=== PATIENT | male | born 1945 | race Caucasian/White ===

== ENCOUNTER 2021-02-10 07:27 | Emergency (ER) | payer OTHER, MEDICARE ==
[~2021-02-10] VITALS: Ht 180.3 cm; Wt 92.1 kg
[2021-02-10 07:30] VITALS: BP_SYST 159
[2021-02-10 08:15] LABS: BILIRUBIN,URINE NEGATIVE (NEGATIVE); BLOOD, URINE 3+ (NEGATIVE); CLARITY/URINE CLEAR (CLEAR); COLOR,URINE YELLOW (YELLOW); GLUCOSE,URINE NEGATIVE (NEGATIVE); KETONES,URINE NEGATIVE (NEGATIVE); LEUKOCYTE ESTERASE ,URINE TRACE (NEGATIVE); NITRITE, URINE NEGATIVE (NEGATIVE); PH,URINE 5.5 (5.0-8.0); PROTEIN URINE 2+ (NEGATIVE); UROBILINOGEN,URINE 0.2 (0.2-1.0)
[2021-02-10 08:26] LABS: BACTERIA,URINE RARE /HPF (None Seen); RBC,URINE 20-50 /HPF (0-3)
[2021-02-10 08:47] VITALS: BP_SYST 135
== END 2021-02-10 08:47 | disposition home or self-care (01) ==
LOC: SED 07:27
DX: T83.511A Infection and inflammatory reaction due to indwelling urethral catheter, initial encounter (principal)
CPT/HCPCS: 81000; 99283

== ENCOUNTER 2021-03-03 21:59 | Inpatient (IN) | payer OTHER, MEDICARE, SELFPAY ==
[~2021-03-03] VITALS: Ht 180.3 cm; Wt 93.9 kg
[2021-03-03 22:00] VITALS: BP_SYST 125
[2021-03-03] MEDS ORDERED: HYT1 PO (22:08)
[2021-03-03] MEDS ORDERED: LOSA100T3 PO (22:08)
[2021-03-03] MEDS ORDERED: ASPI-1393 PO (22:08)
[2021-03-03] MEDS ORDERED: LIP40 PO (22:08)
[2021-03-03] MEDS ORDERED: PANT40TA45 PO (22:11)
[2021-03-03] MEDS ORDERED: OXYB5TAB16 PO (22:11)
[2021-03-03] MEDS ORDERED: METF1000 PO (22:11)
[2021-03-03] MEDS ORDERED: SILV50CR43 TP (22:11)
[2021-03-03 23:34] LABS: BASOPHILS # (AUTO) 0.1 K/uL (0.0-0.2); BASOPHILS % (AUTO) 0.4 % (0.0-2.0); LYMPHOCYTES # (AUTO) 0.9 K/uL (1.0-5.5); LYMPHOCYTES % (AUTO) 7.1 % (20.5-51.5); MEAN CORPUSCULAR HEMOGLOBIN 29 pg (27-31); MEAN CORPUSCULAR HGB CONC 32 % (32-36); MEAN CORPUSCULAR VOLUME 88 fL (79.0-98.0); MONOCYTES # (AUTO) 0.3 K/uL (0.0-1.0); MONOCYTES % (AUTO) 2.3 % (1.7-9.3); NEUTROPHILS # (AUTO) 11.8 K/uL (1.8-7.7); NEUTROPHILS % (AUTO) 90.2 % (40.0-70.0); PLATELET COUNT (AUTO) 162 K/uL (130-430); RED CELL DISTRIBUTION WIDTH 15.5 % (9.0-15.0); WHITE BLOOD COUNT (AUTO) 13.1 K/uL (4.8-10.8)
[2021-03-03 23:39] LABS: RED BLOOD CELL COUNT(AUTO) 1.92 MIL/uL (4.2-6.2)
[2021-03-03 23:40] LABS: HEMATOCRIT 16.9 % (36-54); HEMOGLOBIN 5.5 g/dL (14.0-18.0)
[2021-03-03 23:52] LABS: INR 1.1 (0.80-1.20)
[2021-03-04] VITALS (19 sets, daily range): BP systolic 83–129
[2021-03-04] MEDS ORDERED: PANTOPRAZOLE SODIUM 40 MG in NS 50 ML IV SCH ×2
[2021-03-04] MEDS ORDERED: NS 250 ML IV ONE
[2021-03-04] MEDS ORDERED: PANTOPRAZOLE SODIUM 80 MG in NS 100 ML IVP ONE ×2
[2021-03-04 00:03] LABS: ALANINE AMINOTRANSFERASE 37 U/L (12-78); ALBUMIN 2.9 g/dL (3.4-4.8); ANION GAP 17 (5-15); ASPARTATE AMINOTRANSFERASE 26 U/L (10-37); CALCIUM 8.7 mg/dL (8.4-11.0); CHLORIDE 111 mmol/L (98-107); CREATININE 2.24 mg/dL (0.55-1.30); GLUCOSE 272 mg/dL (70-99); POTASSIUM 4.5 mmol/L (3.5-5.1); SODIUM SERUM 144 mmol/L (136-145); TOTAL BILIRUBIN 0.6 mg/dL (0.0-1.0)
[2021-03-04 00:05] LABS: UREA NITROGEN, BLOOD 145 mg/dL (8-21)
[2021-03-04] MEDS ORDERED: PANTOPRAZOLE SODIUM 40 MG/VIAL (PROTONIX) ONE ×3 (00:16→05:03)
[2021-03-04 02:05] LABS: BILIRUBIN,URINE NEGATIVE (NEGATIVE); BLOOD, URINE NEGATIVE (NEGATIVE); CLARITY/URINE CLEAR (CLEAR); COLOR,URINE YELLOW (YELLOW); GLUCOSE,URINE NEGATIVE (NEGATIVE); KETONES,URINE NEGATIVE (NEGATIVE); LEUKOCYTE ESTERASE ,URINE NEGATIVE (NEGATIVE); NITRITE, URINE NEGATIVE (NEGATIVE); PH,URINE 5.5 (5.0-8.0); PROTEIN URINE NEGATIVE (NEGATIVE); UROBILINOGEN,URINE 0.2 (0.2-1.0)
[2021-03-04] MEDS: D5/0.45 NS 1,000 ML IV SCH ×3 (05:03→14:21)
[2021-03-04 06:23] LABS: BASOPHILS # (AUTO) 0.1 K/uL (0.0-0.2); BASOPHILS % (AUTO) 0.7 % (0.0-2.0); EOSINOPHILS % (AUTO) 0.1 % (0.0-4.0); LYMPHOCYTES # (AUTO) 1.2 K/uL (1.0-5.5); LYMPHOCYTES % (AUTO) 11.7 % (20.5-51.5); MEAN CORPUSCULAR HEMOGLOBIN 29 pg (27-31); MEAN CORPUSCULAR HGB CONC 33 % (32-36); MEAN CORPUSCULAR VOLUME 87 fL (79.0-98.0); MONOCYTES # (AUTO) 0.5 K/uL (0.0-1.0); MONOCYTES % (AUTO) 5.2 % (1.7-9.3); NEUTROPHILS # (AUTO) 8.1 K/uL (1.8-7.7); NEUTROPHILS % (AUTO) 82.3 % (40.0-70.0); PLATELET COUNT (AUTO) 124 K/uL (130-430); RED BLOOD CELL COUNT(AUTO) 2.49 MIL/uL (4.2-6.2); RED CELL DISTRIBUTION WIDTH 15.4 % (9.0-15.0); WHITE BLOOD COUNT (AUTO) 9.9 K/uL (4.8-10.8)
[2021-03-04 06:42] LABS: HEMATOCRIT 21.7 % (36-54); HEMOGLOBIN 7.2 g/dL (14.0-18.0)
[2021-03-04 07:09] LABS: ANION GAP 13 (5-15); CALCIUM 8.2 mg/dL (8.4-11.0); CHLORIDE 116 mmol/L (98-107); GLUCOSE 216 mg/dL (70-99); POTASSIUM 4.3 mmol/L (3.5-5.1); SODIUM SERUM 145 mmol/L (136-145)
[2021-03-04] MEDS ORDERED: MEPERIDINE 100 MG INJ. 100 MG/ML VIAL ONE (08:04)
[2021-03-04] MEDS ORDERED: SIMETHICONE 40 MG/0.6 ML ML ONE (08:04)
[2021-03-04] MEDS ORDERED: MIDAZOLAM HCL 5 MG/5 ML VIAL ONE (08:04)
[2021-03-04 08:12] LABS: UREA NITROGEN, BLOOD 144 mg/dL (8-21)
[2021-03-04] MEDS ORDERED: DOCUSATE SODIUM 100 MG CAPSULE PO PRN (08:15)
[2021-03-04] MEDS ORDERED: ZOLPIDEM TARTRATE 5 MG TABLET PO PRN (08:15)
[2021-03-04] MEDS ORDERED: ONDANSETRON HCL 4 MG/2 ML VIAL IVP PRN (08:15)
[2021-03-04] MEDS ORDERED: ACETAMINOPHEN 325 MG TABLET PO PRN ×2 (08:15→08:30)
[2021-03-04] MEDS ORDERED: MORPHINE 2 MG/ML INJ. SYRINGE IVP PRN (08:15)
[2021-03-04] MEDS ORDERED: MUPIROCIN 2% TOPICAL OINTMENT 22 GM NS PRN (08:15)
[2021-03-04] MEDS ORDERED: LORazepam 2 MG/ML VIAL IVP PRN (08:15)
[2021-03-04] MEDS ORDERED: MAGNESIUM SULFATE 50 ML IV PRN (08:15)
[2021-03-04] MEDS ORDERED: fentaNYL CITRATE/PF 100 MCG/2 ML AMP ONE (08:31)
[2021-03-04] MEDS ORDERED: EPINEPHrine JECT 0.1 MG/ML SYR ONE (09:26)
[2021-03-04] MEDS: PANTOPRAZOLE SODIUM 40 MG in NS 50 ML IV SCH ×3 (09:42→18:11)
[2021-03-05] MEDS: PANTOPRAZOLE SODIUM 40 MG in NS 50 ML IV SCH ×2 (00:43→05:57)
[2021-03-05 00:51] VITALS: BP_SYST 126
[2021-03-05] MEDS: D5/0.45 NS 1,000 ML IV SCH ×2 (05:57→21:30)
[2021-03-05 08:00] VITALS: BP_SYST 113
[2021-03-05 08:34] LABS: ANION GAP 11 (5-15); BASOPHILS % (AUTO) 0.5 % (0.0-2.0); CALCIUM 8.3 mg/dL (8.4-11.0); CHLORIDE 119 mmol/L (98-107); CREATININE 1.56 mg/dL (0.55-1.30); EOSINOPHILS # (AUTO) 0.2 K/uL (0.0-0.4); EOSINOPHILS % (AUTO) 3.7 % (0.0-4.0); GLUCOSE 153 mg/dL (70-99); HEMOGLOBIN 7.3 g/dL (14.0-18.0); LYMPHOCYTES # (AUTO) 1.3 K/uL (1.0-5.5); LYMPHOCYTES % (AUTO) 22.6 % (20.5-51.5); MEAN CORPUSCULAR HEMOGLOBIN 29 pg (27-31); MEAN CORPUSCULAR HGB CONC 33 % (32-36); MEAN CORPUSCULAR VOLUME 88 fL (79.0-98.0); MONOCYTES # (AUTO) 0.3 K/uL (0.0-1.0); MONOCYTES % (AUTO) 5.7 % (1.7-9.3); NEUTROPHILS % (AUTO) 67.5 % (40.0-70.0); PLATELET COUNT (AUTO) 141 K/uL (130-430); POTASSIUM 4.2 mmol/L (3.5-5.1); RED CELL DISTRIBUTION WIDTH 16.1 % (9.0-15.0); SODIUM SERUM 150 mmol/L (136-145); UREA NITROGEN, BLOOD 80 mg/dL (8-21); WHITE BLOOD COUNT (AUTO) 5.9 K/uL (4.8-10.8)
[2021-03-05] MEDS: PANTOPRAZOLE SODIUM 40 MG TAB PO SCH ×2 (09:45→21:26)
[2021-03-05 13:07] VITALS: BP_SYST 103
[2021-03-05 15:30] VITALS: BP_SYST 115
[2021-03-05 20:00] VITALS: BP_SYST 139
[2021-03-06] VITALS: BP_SYST 109
[2021-03-06] MEDS: D5/0.45 NS 1,000 ML IV SCH (03:43)
[2021-03-06 07:18] LABS: ANION GAP 5 (5-15); CALCIUM 7.9 mg/dL (8.4-11.0); CHLORIDE 115 mmol/L (98-107); GLUCOSE 177 mg/dL (70-99); POTASSIUM 3.9 mmol/L (3.5-5.1); SODIUM SERUM 142 mmol/L (136-145); UREA NITROGEN, BLOOD 47 mg/dL (8-21)
[2021-03-06 07:35] LABS: BASOPHILS % (AUTO) 0.4 % (0.0-2.0); EOSINOPHILS # (AUTO) 0.1 K/uL (0.0-0.4); EOSINOPHILS % (AUTO) 2.1 % (0.0-4.0); LYMPHOCYTES # (AUTO) 1.3 K/uL (1.0-5.5); LYMPHOCYTES % (AUTO) 27.8 % (20.5-51.5); MEAN CORPUSCULAR HEMOGLOBIN 29 pg (27-31); MEAN CORPUSCULAR HGB CONC 33 % (32-36); MEAN CORPUSCULAR VOLUME 89 fL (79.0-98.0); MONOCYTES # (AUTO) 0.3 K/uL (0.0-1.0); MONOCYTES % (AUTO) 6.8 % (1.7-9.3); NEUTROPHILS # (AUTO) 2.9 K/uL (1.8-7.7); NEUTROPHILS % (AUTO) 62.9 % (40.0-70.0); PLATELET COUNT (AUTO) 126 K/uL (130-430); RED CELL DISTRIBUTION WIDTH 16.3 % (9.0-15.0); WHITE BLOOD COUNT (AUTO) 4.6 K/uL (4.8-10.8)
[2021-03-06 07:50] LABS: HEMATOCRIT 21.4 % (36-54)
[2021-03-06 08:00] VITALS: BP_SYST 109
[2021-03-06] MEDS: PANTOPRAZOLE SODIUM 40 MG TAB PO SCH (09:16)
[2021-03-06] MEDS ORDERED: FERR-69 PO (10:21)
[2021-03-06] MEDS ORDERED: PRO40 PO (10:22)
[2021-03-06 10:23] VITALS: BP_SYST 135
== END 2021-03-06 11:17 | disposition home health service (06) | DRG 377 ==
LOC: SED 21:59 → SIC 23:59 → STU 03-04 19:17 → SMU 03-04 20:48
PROVIDERS: ADMIT General Practice; ATTEND General Practice
PROC: 30233N1 Transfusion of Nonautologous Red Blood Cells into Peripheral Vein, Percutaneous Approach (ICD-10-PCS; 2021-03-04)
PROC: 3E0G8GC Introduction of Other Therapeutic Substance into Upper GI, Via Natural or Artificial Opening Endoscopic (ICD-10-PCS; 2021-03-04)
PROC: 0W3P8ZZ Control Bleeding in Gastrointestinal Tract, Via Natural or Artificial Opening Endoscopic (ICD-10-PCS; 2021-03-04)
PROC: 0DB68ZX Excision of Stomach, Via Natural or Artificial Opening Endoscopic, Diagnostic (ICD-10-PCS; principal; 2021-03-04 10:15)
PROC: 0DB78ZX Excision of Stomach, Pylorus, Via Natural or Artificial Opening Endoscopic, Diagnostic (ICD-10-PCS; 2021-03-04 10:15)
DX: K26.4 Chronic or unspecified duodenal ulcer with hemorrhage (principal); R57.1 Hypovolemic shock; N17.0 Acute kidney failure with tubular necrosis; E43 Unspecified severe protein-calorie malnutrition; D62 Acute posthemorrhagic anemia; E87.2 Acidosis; E87.0 Hyperosmolality and hypernatremia; I10 Essential (primary) hypertension; K44.9 Diaphragmatic hernia without obstruction or gangrene; I25.10 Atherosclerotic heart disease of native coronary artery without angina pectoris; N40.0 Benign prostatic hyperplasia without lower urinary tract symptoms; Z20.822 Contact with and (suspected) exposure to COVID-19; K25.9 Gastric ulcer, unspecified as acute or chronic, without hemorrhage or perforation; K29.70 Gastritis, unspecified, without bleeding; G90.8 Other disorders of autonomic nervous system; D69.6 Thrombocytopenia, unspecified; K21.9 Gastro-esophageal reflux disease without esophagitis; N32.89 Other specified disorders of bladder; E11.9 Type 2 diabetes mellitus without complications; Z95.2 Presence of prosthetic heart valve; Z87.891 Personal history of nicotine dependence; Z68.28 Body mass index [BMI] 28.0-28.9, adult; Z88.8 Allergy status to other drugs, medicaments and biological substances; Z88.2 Allergy status to sulfonamides; Z79.82 Long term (current) use of aspirin; Z79.899 Other long term (current) drug therapy
CPT/HCPCS: 36415; 36430; 70450-TC; 71045; 76376; 76770; 80048; 80053; 81003; 82941; 83036; 83735; 85025; 85610-TC; 85730-TC; 86886; 86900; 86901; 86920; 87081; 88305; 88312; 88313; 93005; 96365; 97116-GP; 99291; C9113; J0171; J2175; J2250; J3010; P9021

== ENCOUNTER 2023-12-02 02:58 | Inpatient (IN) | payer OTHER, MEDICARE ==
[~2023-12-02] VITALS: Ht 180.3 cm; Wt 89.8 kg
[2023-12-02] VITALS (7 sets, daily range): BP systolic 132–158; PULSE 67–94; RESP 17–24; TEMP 97.5–98.6; O2SAT 94–97
[~2023-12-02 02:58] MED LIST: FERR-69 PO; HYT1 PO; LIP40 PO; LOSA-415 PO; METF1000 PO; OXYB5TAB21 PO; PANT40TA45 PO; PRO40 PO; SILV50CR43 TP
[2023-12-02] MEDS ORDERED: MORPHINE 4 MG INJ. 4 MG/ML VIAL ONE (03:22)
[2023-12-02] MEDS ORDERED: NITROGLYCERIN 1 INCH (GM) OINT. ONE (03:22)
[2023-12-02] MEDS: MORPHINE 4 MG INJ. 4 MG/ML VIAL IVP ONE (03:27)
[2023-12-02] MEDS: NITROGLYCERIN 1 INCH (GM) OINT. TP ONE (03:28)
[2023-12-02] MEDS ORDERED: AZITHROMYCIN 500 MG/VIAL (ZITHROMAX) IV ONE (04:24)
[2023-12-02] MEDS: AZITHROMYCIN 500 MG in NS 250 ML IV ONE (04:47)
[2023-12-02] MEDS: cefTRIAXone 1 GM IVPB PREMIX 50 ML IV ONE (04:47)
[2023-12-02 05:04] LABS: BASOPHILS % (AUTO) 0.2 % (0.0-2.0); EOSINOPHILS # (AUTO) 0.1 K/uL (0.0-0.4); EOSINOPHILS % (AUTO) 1.3 % (0.0-4.0); HEMOGLOBIN 12.2 g/dL (14.0-18.0); LYMPHOCYTES # (AUTO) 1.1 K/uL (1.0-5.5); LYMPHOCYTES % (AUTO) 13.9 % (20.5-51.5); MEAN CORPUSCULAR HEMOGLOBIN 29 pg (27-31); MEAN CORPUSCULAR HGB CONC 34 % (32-36); MEAN CORPUSCULAR VOLUME 85 fL (79.0-98.0); MONOCYTES # (AUTO) 0.5 K/uL (0.0-1.0); MONOCYTES % (AUTO) 5.9 % (1.7-9.3); NEUTROPHILS # (AUTO) 6.3 K/uL (1.8-7.7); NEUTROPHILS % (AUTO) 78.7 % (40.0-70.0); PLATELET COUNT (AUTO) 175 K/uL (130-430); RED BLOOD CELL COUNT(AUTO) 4.23 MIL/uL (4.2-6.2); RED CELL DISTRIBUTION WIDTH 14.5 % (9.0-15.0)
[2023-12-02 05:23] LABS: ANION GAP 12 (5-15); CALCIUM 8.8 mg/dL (8.4-11.0); CARBON DIOXIDE 23 mmol/L (23-29); CHLORIDE 101 mmol/L (98-107); CREATININE 2.54 mg/dL (0.55-1.30); GLUCOSE 124 mg/dL (74-106); POTASSIUM 3.8 mmol/L (3.5-5.1); SODIUM SERUM 136 mmol/L (136-145); UREA NITROGEN, BLOOD 45 mg/dL (8-21)
[2023-12-02 05:41] LABS: ALANINE AMINOTRANSFERASE 21 U/L (12-78); ALBUMIN 2.9 g/dL (3.4-4.8); ASPARTATE AMINOTRANSFERASE 15 U/L (10-37); BILIRUBIN,DIRECT 0.5 mg/dL (0.0-0.3); TOTAL BILIRUBIN 1.9 mg/dL (0.0-1.0); TOTAL PROTEIN, SERUM 7.8 g/dL (6.4-8.3)
[2023-12-02 05:50] LABS: BLOOD GAS BASE EXCESS -2.3 mmol/L (-3.0-3.0); BLOOD GAS HCO3 20.6 mmol/L (21.0-27.0); BLOOD GAS PCO2 30.7 mmHg (32.0-45.0); BLOOD GAS PH 7.445 (7.350-7.450); BLOOD GAS PO2 64.1 mmHg (75.0-100.0)
[2023-12-02 05:51] LABS: ABG O2 SAT% ESTIMATE 93.6 % (94.0-100.0); ALLEN'S TEST POSITIVE (P)
[2023-12-02] MEDS ORDERED: ONDANSETRON HCL 4 MG/2 ML VIAL IVP PRN (07:15)
[2023-12-02] MEDS ORDERED: IPRATROPIUM BROM 0.5 MG/2.5 ML VIAL.NEB (ATROVENT) INH PRN (07:15)
[2023-12-02] MEDS ORDERED: ALBUTEROL SULFATE 0.083% 2.5 MG/3 ML VIAL.NEB INH PRN (07:15)
[2023-12-02] MEDS ORDERED: ACETAMINOPHEN 325 MG TABLET PO PRN (07:15)
[2023-12-02] MEDS: ASPIRIN 81 MG TAB.CHEW PO SCH (08:39)
[2023-12-02] MEDS: HYDROcodone/ACETAMIN 10-325 MG TAB PO PRN (08:40)
[2023-12-02] MEDS ORDERED: TAMS-11 PO (13:25)
[2023-12-02] MEDS ORDERED: FAMO40TA7 PO (13:25)
[2023-12-02] MEDS: HYDROcodone/ACETAMIN 5-325 MG TAB (NORCO/ VICODIN) PO PRN (18:26)
[2023-12-02] MEDS: ATORVASTATIN 20 MG TABLET PO SCH (20:45)
[2023-12-02] MEDS: TERAZOSIN HCL 1 MG CAPSULE (HYTRIN) PO SCH (20:46)
[2023-12-02] MEDS ORDERED: ZOLPIDEM TARTRATE 5 MG TABLET PO PRN (22:00)
[2023-12-03] VITALS: BP_SYST 113; PULSE 97; RESP 18; TEMP 98.2; O2SAT 96
[2023-12-03 06:37] LABS: BASOPHILS % (AUTO) 0.1 % (0.0-2.0); EOSINOPHILS # (AUTO) 0.2 K/uL (0.0-0.4); EOSINOPHILS % (AUTO) 3.5 % (0.0-4.0); HEMOGLOBIN 11.6 g/dL (14.0-18.0); LYMPHOCYTES # (AUTO) 1.1 K/uL (1.0-5.5); LYMPHOCYTES % (AUTO) 17.5 % (20.5-51.5); MEAN CORPUSCULAR HEMOGLOBIN 29 pg (27-31); MEAN CORPUSCULAR HGB CONC 33 % (32-36); MEAN CORPUSCULAR VOLUME 86 fL (79.0-98.0); MONOCYTES # (AUTO) 0.4 K/uL (0.0-1.0); MONOCYTES % (AUTO) 6.5 % (1.7-9.3); NEUTROPHILS # (AUTO) 4.6 K/uL (1.8-7.7); NEUTROPHILS % (AUTO) 72.4 % (40.0-70.0); PLATELET COUNT (AUTO) 168 K/uL (130-430); RED BLOOD CELL COUNT(AUTO) 4.06 MIL/uL (4.2-6.2); RED CELL DISTRIBUTION WIDTH 14.3 % (9.0-15.0); WHITE BLOOD COUNT (AUTO) 6.4 K/uL (4.8-10.8)
[2023-12-03 06:43] LABS: ANION GAP 9 (5-15); CALCIUM 8.9 mg/dL (8.4-11.0); CARBON DIOXIDE 24 mmol/L (23-29); CHLORIDE 105 mmol/L (98-107); CREATININE 1.78 mg/dL (0.55-1.30); GLUCOSE 139 mg/dL (74-106); POTASSIUM 4.1 mmol/L (3.5-5.1); SODIUM SERUM 138 mmol/L (136-145); UREA NITROGEN, BLOOD 38 mg/dL (8-21)
[2023-12-03 08:00] VITALS: BP_SYST 144; PULSE 93; RESP 18; TEMP 97.9; O2SAT 96
[2023-12-03] MEDS: cefTRIAXone 1 GM in D5W 50 ML IV SCH (08:58)
[2023-12-03] MEDS: METOPROLOL SUCCINATE 25 MG TAB.SR.24H (TOPROL XL) PO SCH (09:00)
[2023-12-03] MEDS: HEPARIN SODIUM,PORCINE 5,000 UNITS/ML VIAL SUBCUT SCH (09:00)
[2023-12-03] MEDS: AZITHROMYCIN 500 MG in NS 250 ML IV SCH (09:59)
== END 2023-12-03 13:50 | disposition left against medical advice (07) | DRG 193 ==
LOC: SED 02:58 → STU 07:03
PROVIDERS: ADMIT Internal Medicine; ATTEND Internal Medicine
DX: J18.9 Pneumonia, unspecified organism (principal); N17.0 Acute kidney failure with tubular necrosis; I12.9 Hypertensive chronic kidney disease with stage 1 through stage 4 chronic kidney disease, or unspecified chronic kidney disease; N18.30 Chronic kidney disease, stage 3 unspecified; I20.9 Angina pectoris, unspecified; E11.22 Type 2 diabetes mellitus with diabetic chronic kidney disease; Z95.0 Presence of cardiac pacemaker; Z87.442 Personal history of urinary calculi; Z79.899 Other long term (current) drug therapy
CPT/HCPCS: 36415; 71045; 71250-TC; 76770; 80048; 80076; 82803; 83037; 83605; 83880; 84484; 85025; 85379; 87040; 93306; 99291; G0378; J0456; J0696; J1644; J2270; J7050; J7060